=== PATIENT | male | born 1975 | race Caucasian/White ===

== ENCOUNTER 2017-07-14 08:03 | Day surgery (SDC) | payer OTHER ==
[2017-07-14] MEDS: LR 1,000 ML IV ×3 (09:03)
[2017-07-14] MEDS ORDERED: LIDOCAINE 2% INJ 100 MG/5 ML SDV (FOR ANES.) As Ordered ×3 (10:01)
[2017-07-14] MEDS ORDERED: ROCURONIUM BROMIDE 50 MG/5 ML VIAL As Ordered ×3 (10:01)
[2017-07-14] MEDS ORDERED: PROPOFOL 200 MG/20 ML VIAL As Ordered ×3 (10:01)
[2017-07-14] MEDS ORDERED: fentaNYL 250 MCG/5 ML INJECTION (J3010) As Ordered ×3 (10:02)
[2017-07-14] MEDS ORDERED: MIDAZOLAM INJ 2 MG/2 ML VIAL (J2250) As Ordered ×3 (10:02)
[2017-07-14] MEDS ORDERED: KETOROLAC 60 MG/2 ML VIAL (J1885) As Ordered ×3 (11:16)
[2017-07-14] MEDS ORDERED: METOCLOPRAMIDE INJ 10MG/2ML VIAL (J2765) As Ordered ×3 (11:16)
[2017-07-14] MEDS ORDERED: dexameTHASONE 4 MG/ML 1ML VIAL (J1100) As Ordered ×6 (11:16)
[2017-07-14] MEDS ORDERED: ONDANSETRON 4MG/2ML VIAL (J2405) As Ordered ×3 (11:16)
[2017-07-14] MEDS ORDERED: HYDROmorphone HCL 2 MG/ML 1ML VIAL (J1170) As Ordered ×3 (11:18)
[2017-07-14] MEDS ORDERED: GLYCOPYRROLATE INJ 0.2 MG/ML 2 ML VIAL As Ordered ×3 (11:21)
[2017-07-14] MEDS ORDERED: NEOSTIGMINE 10 MG/10 ML VIAL (J2710) As Ordered ×3 (11:21)
[2017-07-14] MEDS: LIDOCAINE W/EPINEPHRINE 1% 20ML VIAL As Ordered ×6 (12:00)
[2017-07-14] MEDS: EPINEPHrine INJ 1 MG/ML 1ML AMP As Ordered ×3 (12:00)
[2017-07-14] MEDS: OXYMETAZOLINE NASAL SPRAY (AFRIN) As Ordered ×3 (12:00)
[2017-07-14] MEDS ORDERED: EPINEPHrine INJ 1 MG/ML 1ML AMP As Ordered ×3 (12:01)
[2017-07-14] MEDS ORDERED: ONDANSETRON 4MG/2ML VIAL (J2405) IV ×3 (13:15)
[2017-07-14] MEDS ORDERED: PERCOCET 5MG/325MG TAB PO ×6 (13:15)
[2017-07-14] MEDS ORDERED: HYDROmorphone HCL 1 MG/ML SYRINGE (J1170) IV ×3 (13:15)
[2017-07-14] MEDS ORDERED: IBUPROFEN 800 MG TAB PO ×3 (13:15)
[2017-07-14] MEDS ORDERED: fentaNYL 100 MCG/2 ML INJECTION (J3010) IV ×3 (13:15)
[2017-07-14] MEDS ORDERED: LR 1,000 ML IV ×3 (13:15)
[2017-07-14] MEDS ORDERED: METOCLOPRAMIDE INJ 10MG/2ML VIAL (J2765) IV ×3 (13:15)
== END 2017-07-14 14:41 | disposition home or self-care (01) ==
LOC: M SDC 08:03
DX: J32.9 Chronic sinusitis, unspecified (principal); J33.9 Nasal polyp, unspecified; J34.2 Deviated nasal septum; G47.30 Sleep apnea, unspecified; Z79.899 Other long term (current) drug therapy; R12 Heartburn
CPT/HCPCS: 30520

== ENCOUNTER → 2018-08-21 | Outpatient (CLI) | payer OTHER ==
[~2018-08-21] MED LIST: CETI10TA PO; FLUT1LOT EX; OMEP20CA3 PO
--- NOTE | 2018-08-21 09:57 | REP ---
LEFT SHOULDER, THREE VIEWS: HISTORY: Pain. There is no acute fracture or dislocation. The joint spaces are normal in appearance. IMPRESSION: There is no acute fracture or dislocation. Electronically Signed by Parker Fang MD 08/21/2018 10:06 A
== END ==
LOC: M WUC 08:38
PROVIDERS: ATTEND Physician Assistant
DX: M25.512 Pain in left shoulder (principal)

== ENCOUNTER 2021-02-23 09:36 | Emergency (ER) | payer OTHER ==
[~2021-02-23] VITALS: Ht 185.4 cm; Wt 104.6 kg
[~2021-02-23 09:36] MED LIST changes: +OMEP1CAP73 PO; -OMEP20CA3 PO
[2021-02-23] MEDS ORDERED: methylPREDNISolone 125MG 2ML VIAL IV ONE (10:25)
[2021-02-23] MEDS ORDERED: FAMOTIDINE IV BAG 20 MG in IV 1 EA IV ONE (10:25)
[2021-02-23] MEDS ORDERED: ASPIRIN 325 MG TAB PO ONE (10:25)
[2021-02-23 10:43] LABS: HEMATOCRIT 46.5 % (42.0-52.0); HEMOGLOBIN 15.3 g/dl (13.5-17.5); MEAN CORPUSCULAR HEMOGLOBIN 30.8 pg (27.0-33.0); MEAN CORPUSCULAR HGB CONC 32.9 g/dl (32.0-36.5); MEAN CORPUSCULAR VOLUME 93.6 fl (80.0-96.0); PLATELET COUNT, AUTOMATED 233 10^3/uL (150-450); RED BLOOD COUNT 4.97 10^6/uL (4.30-6.10); WHITE BLOOD COUNT 6.7 10^3/uL (4.0-10.0)
--- NOTE | 2021-02-23 10:49 | REP ---
INDICATION: chest pain. COMPARISON: None. TECHNIQUE: Portable FINDINGS: The technique utilized in obtaining the radiograph has magnified the cardiac silhouette and accentuated the interstitial markings. The superior mediastinal structures are midline. The cardiac silhouette is unremarkable in size, shape, and position. The diaphragmatic surfaces of the lungs are regular, and the costophrenic angles are clear. The pulmonary schaffer are clear. The imaged osseous structures are intact. IMPRESSION: There is no acute cardiopulmonary disease. <Electronically signed by Reji Zelaya > 02/23/21 [id number]
[2021-02-23 11:52] LABS: BLOOD UREA NITROGEN 17 MG/DL (7-18); CALCIUM LEVEL 8.8 MG/DL (8.5-10.1); CARBON DIOXIDE LEVEL 29 MEQ/L (21-32); CHLORIDE LEVEL 109 MEQ/L (98-107); CREATININE FOR GFR 1.05 MG/DL (0.70-1.30); GLOMERULAR FILTRATION RATE > 60.0 (>60); GLUCOSE, FASTING 91 MG/DL (70-100); POTASSIUM SERUM 4.4 MEQ/L (3.5-5.1); SODIUM LEVEL 141 MEQ/L (136-145)
[2021-02-23 12:55] VITALS: BP 113/65
--- NOTE | 2021-02-24 06:15 | ECGEPIP ---
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
== END 2021-02-23 13:05 | disposition home or self-care (01) ==
LOC: M ED 09:36
DX: T63.441A Toxic effect of venom of bees, accidental (unintentional), initial encounter (principal); R07.9 Chest pain, unspecified; R22.0 Localized swelling, mass and lump, head; R06.02 Shortness of breath; Y92.89 Other specified places as the place of occurrence of the external cause; K21.9 Gastro-esophageal reflux disease without esophagitis; Z79.899 Other long term (current) drug therapy
CPT/HCPCS: 71045; 80047; 80048; 84484; 85027; 93005; 93041; 94760; 96361; 96374; 99284; J2930